=== PATIENT | female | born 1945 | race Caucasian/White ===

== ENCOUNTER 2019-11-08 13:14 | Inpatient (IN) | payer MEDICARE, OTHER ==
[~2019-11-08] VITALS: Ht 149.9 cm; Wt 83.6 kg
[2019-11-08 13:42] VITALS: BP 115/67
[2019-11-08 15:00] VITALS: BP 113/66
[2019-11-08 15:07] LABS: HEMATOCRIT 27.9 % (36.0-47.0); HEMOGLOBIN 9.6 g/dL (12.0-15.5); RED BLOOD COUNT 2.93 x10^6/uL (3.50-5.40); WHITE BLOOD COUNT 8.5 x10^3/uL (4.0-11.0)
[2019-11-08 15:18] LABS: PROTHROMBIN TIME PATIENT 21.8 SEC (11.7-14.0)
[2019-11-08 15:24] LABS: ALBUMIN 1.7 g/dL (3.4-5.0); ALBUMIN/GLOBULIN RATIO 0.5 (1.0-1.7); CALCIUM 7.7 mg/dL (8.5-10.1); CREATININE 1.2 mg/dL (0.6-1.0); GFR 44.2; TOTAL BILIRUBIN 1.7 mg/dL (0.2-1.0); TOTAL PROTEIN 5.2 g/dL (6.4-8.2)
[2019-11-08 15:26] LABS: POTASSIUM 2.7 mmol/L (3.5-5.1)
[2019-11-08] MEDS ORDERED: POTASSIUM CHLORIDE 20 MEQ TABLET.ER. PO ONE ×3 (16:00→23:45)
[2019-11-08] MEDS ORDERED: C.DIFF MED SCREEN BY RX. MC ONE (17:00)
[2019-11-08 19:00] VITALS: BP 115/75
[2019-11-08] MEDS ORDERED: SPIR50TA PO (20:21)
[2019-11-08] MEDS ORDERED: DIPH25TA24 PO (20:21)
[2019-11-08] MEDS ORDERED: METO25TA4 PO (20:21)
[2019-11-08] MEDS ORDERED: LACT20SO PO (20:21)
[2019-11-08] MEDS ORDERED: MULT-114 PO (20:21)
[2019-11-08] MEDS ORDERED: FURO40TA4 PO (20:21)
[2019-11-08] MEDS ORDERED: LEVO125T5 PO (20:21)
[2019-11-08] MEDS ORDERED: PANT40TA77 PO (20:21)
[2019-11-08] MEDS ORDERED: SUCR1ORA5 PO (20:21)
[2019-11-08] MEDS ORDERED: FERR325T14 PO (20:21)
[2019-11-08] MEDS ORDERED: MV-M1TAB7 PO (20:21)
[2019-11-08] MEDS ORDERED: RIFA550T4 PO (20:21)
[2019-11-08] MEDS ORDERED: OXYC5CAP PO (20:21)
[2019-11-08] MEDS ORDERED: DEXTROSE 50% 25 GM / 50ML DISP.SYRIN. IV PRN (20:30)
[2019-11-08] MEDS ORDERED: NON FORMULARY ITEM (Mv-Mn/Iron/Fa/Herbal Cmplx#190 (Vitamin D3 Complete Caplet) 1 EACH) PO PRN (20:30)
[2019-11-08] MEDS ORDERED: oxyCODONE IR 5 MG TABLET PO PRN (20:45)
[2019-11-08 23:00] VITALS: BP 110/69
[2019-11-08] MEDS: SPIRONOLACTONE 25 MG TABLET PO SCH (23:18)
[2019-11-08] MEDS: diphenhydrAMINE HCL 25 MG CAPSULE PO PRN (23:18)
[2019-11-08] MEDS: SUCRALFATE 1 GM/10 ML ORAL.SUSP. PO SCH (23:18)
[2019-11-08] MEDS: LACTULOSE 20 GM/30 ML SOLUTION. PO SCH (23:27)
[2019-11-08] MEDS: METOPROLOL TART IMMED RELEASE 25 MG TABLET. PO SCH (23:28)
[2019-11-08] MEDS: rifAXIMin 550 MG TABLET PO SCH (23:28)
[2019-11-09] VITALS (14 sets, daily range): BP systolic 98–124; BP diastolic 48–81
[2019-11-09] MEDS: LEVOTHYROXINE 125 MCG TABLET PO SCH (06:00)
[2019-11-09 07:10] LABS: BASO # 0.1 x10^3/uL (0.0-0.2); BASO % 1 % (0-3); EOS # 0.3 x10^3/uL (0.0-0.7); EOS % 4 % (0-3); HEMATOCRIT 26.7 % (36.0-47.0); LYMPH # 2.1 x10^3/uL (1.0-4.8); LYMPH % 25 % (24-48); MEAN CORPUSCULAR HEMOGLOBIN 32 pg (25-35); MEAN CORPUSCULAR HGB CONC 34 g/dL (31-37); MEAN CORPUSCULAR VOLUME 96 fL (79-100); MONO # 1.5 x10^3/uL (0.0-1.1); MONO % 18 % (0-9); NEUT # 4.3 x10^3/uL (1.8-7.7); NEUT % 52 % (31-73); PLATELET COUNT 117 x10^3/uL (140-400); RED BLOOD COUNT 2.79 x10^6/uL (3.50-5.40); WHITE BLOOD COUNT 8.4 x10^3/uL (4.0-11.0)
[2019-11-09 07:13] LABS: CALCIUM 7.4 mg/dL (8.5-10.1); CREATININE 1.2 mg/dL (0.6-1.0); GFR 44.2; POTASSIUM 3.7 mmol/L (3.5-5.1)
[2019-11-09] MEDS: PANTOPRAZOLE 40 MG TABLET.DR. PO SCH ×2 (07:30→15:29)
[2019-11-09] MEDS: INSULIN LISPRO 300 UNITS/3 ML VIAL. SQ SCH ×3 (08:00→16:54)
[2019-11-09] MEDS: MULTIVITAMIN with MINERAL TABLET. PO SCH (08:02)
[2019-11-09] MEDS: rifAXIMin 550 MG TABLET PO SCH ×2 (08:02→22:01)
[2019-11-09] MEDS: LACTULOSE 20 GM/30 ML SOLUTION. PO SCH ×2 (08:02→22:01)
[2019-11-09] MEDS: SPIRONOLACTONE 25 MG TABLET PO SCH ×2 (08:02→21:00)
[2019-11-09] MEDS: SUCRALFATE 1 GM/10 ML ORAL.SUSP. PO SCH ×4 (08:02→22:01)
[2019-11-09] MEDS: FERROUS SULFATE 325 MG TABLET. PO SCH (08:02)
[2019-11-09] MEDS: METOPROLOL TART IMMED RELEASE 25 MG TABLET. PO SCH ×2 (08:55→21:00)
--- NOTE | 2019-11-09 09:58 | NUR ---
SW following. Discussed with RN, pt is from [facility]. Pt requires a COVID test to return. NPO, procedure today. SW will continue to follow.
[2019-11-09 10:44] LABS: % BANDS 4 % (0-9); % BASOS 1 % (0-3); % EOS 1 % (0-5); % LYMPHS 20 % (24-48); % MONOS 3 % (0-10); % SEGS 71 % (35-66)
[2019-11-09 10:49] LABS: PLT ESTIMATE DECREASED (ADEQUATE)
[2019-11-09 10:50] LABS: ANISOCYTOSIS SLIGHT
--- NOTE | 2019-11-09 11:33 | HP ---
ADMIT DATE: 11/09/2019 1HISTORY OF PRESENT ILLNESS: The patient is a 74-year-old female patient, a resident at [facility], who was admitted there for rehabilitation after admission to [facility]. She has had 2 episodes of GI bleed and was found to have anastomotic ulcer at the gastrojejunostomy and she underwent gastric bypass surgery for morbid obesity. She was also found to have advanced liver cirrhosis and when I saw her recently she had markedly swelling of both lower extremities for which we have arranged for her to have venous Doppler ultrasound, which basically showed that she has deep vein thrombosis of her left lower extremity and given that she has bled twice, I spoke with Dr. Maguire regarding placement of an IVC filter and he kindly accepted the patient for placement of the IVC filter as she is high risk for bleeding and cannot be put on anticoagulation. The patient herself denied any shortness of breath, cough, phlegm or hemoptysis. PAST MEDICAL HISTORY: Significant for hyperlipidemia, hypertension, hypothyroidism, visual impairment, morbid obesity. She also has hypothyroidism, gastroesophageal reflux disease. She also had chronic constipation, sciatica, GI bleed from anastomotic ulcer, weight loss, alcoholic liver cirrhosis, claustrophobia, anxiety and depression. PAST SURGICAL HISTORY: Significant for tonsillectomy, adenoidectomy, appendectomy, gastric bypass surgery, carpal tunnel release, total abdominal hysterectomy, bilateral salpingo-oophorectomy, left elbow surgery, esophagogastroduodenoscopy. FAMILY HISTORY: Positive for hypertension, type 2 diabetes. SOCIAL HISTORY: She is currently residing at [facility]. She normally lives at home. Her daughter and granddaughter lives with her son, her son lives in [place]. She does not smoke, but drinks alcohol, mostly wine. ALLERGIES: SHE IS ALLERGIC TO AMPICILLIN, ASPIRIN, DOXYCYCLINE, ERYTHROMYCIN, VANCOMYCIN, AND SULFA DRUGS. MEDICATIONS: She is currently on following medications: She is on diphenhydramine 25 mg every 12 hours as needed, rifaximin 550 mg twice a day, ferrous sulfate 325 mg once a day, metoprolol tartrate 12.5 mg twice a day, spironolactone 50 mg twice a day, oxycodone 5 mg every 4 hours, lactulose 20 g p.o. b.i.d., furosemide 40 mg twice a day, sucralfate 1 g 4 times a day. She is on Protonix 40 mg twice a day, levothyroxine sodium 125 mcg once a day, multivitamin with mineral 1 tablet once a day, multivitamin, vitamin D complete 1 tablet once a day. REVIEW OF SYSTEMS: As per history of present illness. PHYSICAL EXAMINATION: GENERAL: On arrival to the hospital, she looked well and was clearly in no apparent respiratory distress. She is pale, no jaundice, cyanosis or thyromegaly. No jugular venous distention. No limb edema. VITAL SIGNS: Her heart rate was 85, blood pressure 115/75, temperature was 99, respiratory rate was 16, and oxygen saturation was 99% on room air. HEAD, EYES, EARS, NOSE AND THROAT: Normocephalic, atraumatic. NECK: Supple. HEART: Showed normal first and second heart sounds. No gallop, rub or murmur. CHEST: Clear to auscultation. No crepitation or rhonchi. ABDOMEN: Distended, soft, nontender. No guarding or rigidity. No organomegaly. All hernial orifice intact. Bowel sounds normal. NEUROLOGIC: She was awake, alert, responding appropriately. All cranial nerves intact. EXTREMITIES: She moves extremities without difficulty, she ambulates with a walker. She has no evidence of flapping tremor. LABORATORY DATA: Her lab work showed her white cell count to be 8500, hemoglobin was 9.6, hematocrit 27.9, MCV 95, and platelet count of 129,000. Her prothrombin time was 21.8, INR 1.9, aPTT was 50. Her chemistry showed a serum sodium 138, potassium 3.7, chloride 101, bicarbonate 27, anion gap of 10, BUN 8, creatinine was 1.2, estimated GFR was 44 mL per minute. Her glucose 124, calcium was 7.7. Total bilirubin 1.7. AST, ALT, alkaline phosphatase were normal. Serum ammonia was 27. Total protein was 5.2, albumin was 1.7. ASSESSMENT AND PLAN: In summary, this is a 74-year-old female patient who has left lower extremity deep vein thrombosis who also has anastomotic ulcers from which she bled twice. She has also advanced liver disease and therefore a decision was made to admit her for placement of IVC filter. We have consulted Dr. Sellers. We will keep her n.p.o. from midnight tonight and follow her labs closely. RON PIERCE MD DR: FRANCHESCA/ketty JOB#: [id number] / [id number]
[2019-11-09] MEDS ORDERED: IOHEXOL 240 MG/ML 50ML VIAL. ONE (13:28)
[2019-11-09] MEDS ORDERED: LIDOCAINE WITH 8.4% SOD BICARB 3 ML DISP.SYRIN. ONE (13:28)
[2019-11-09] MEDS ORDERED: fentaNYL PF VIAL 100 MCG/2 ML VIAL ONE (14:17)
[2019-11-09] MEDS ORDERED: MIDAZOLAM HCL/PF 2 MG/2 ML VIAL. ONE (14:17)
[2019-11-09] MEDS ORDERED: fentaNYL PF VIAL 100 MCG/2 ML VIAL IV ONE (14:30)
[2019-11-09] MEDS ORDERED: LIDOCAINE WITH 8.4% SOD BICARB 3 ML DISP.SYRIN. IJ ONE (14:30)
[2019-11-09] MEDS ORDERED: MIDAZOLAM HCL/PF 2 MG/2 ML VIAL. IV ONE (14:30)
[2019-11-09] MEDS ORDERED: IOHEXOL 240 MG/ML 50ML VIAL. IJ ONE (14:30)
[2019-11-09] MEDS ORDERED: CONTRAST GIVEN. MC PRN (14:45)
--- NOTE | 2019-11-09 15:03 | NUR ---
Patient to IR for IVC filter placement. Placed through right IJ, no sedation. Patient tolerated well with no complications, vitals stable. Report called to ZEHRA Baeza on .
[2019-11-10] MEDS: PANTOPRAZOLE 40 MG TABLET.DR. PO SCH (05:52)
[2019-11-10] MEDS: LEVOTHYROXINE 125 MCG TABLET PO SCH (05:52)
[2019-11-10 07:00] VITALS: BP 94/59
[2019-11-10] MEDS: INSULIN LISPRO 300 UNITS/3 ML VIAL. SQ SCH ×3 (08:00→17:00)
[2019-11-10] MEDS: METOPROLOL TART IMMED RELEASE 25 MG TABLET. PO SCH ×2 (08:09→20:38)
[2019-11-10] MEDS: SPIRONOLACTONE 25 MG TABLET PO SCH ×2 (08:09→20:38)
[2019-11-10] MEDS: rifAXIMin 550 MG TABLET PO SCH ×2 (08:14→20:38)
[2019-11-10] MEDS: LACTULOSE 20 GM/30 ML SOLUTION. PO SCH ×2 (08:15→20:37)
[2019-11-10] MEDS: FERROUS SULFATE 325 MG TABLET. PO SCH (08:15)
[2019-11-10] MEDS: diphenhydrAMINE HCL 25 MG CAPSULE PO PRN ×2 (08:15→21:52)
[2019-11-10] MEDS: MULTIVITAMIN with MINERAL TABLET. PO SCH (08:15)
[2019-11-10] MEDS: SUCRALFATE 1 GM/10 ML ORAL.SUSP. PO SCH ×4 (10:00→20:37)
[2019-11-10 11:00] VITALS: BP 117/70
--- NOTE | 2019-11-10 13:45 | NUR ---
Pharmacy Medication Review S: Consulted for medication review re: C.diff Risk Assessment score of 4 O: TOMMY AUSTIN is a 74 year old with: Previous C.diff infection: No Previous hospitalization: Within 60 days Recent antibiotics: Within 60 days Use of gastric acid suppressor: No Transfer from ID/LTAC: Yes Current antibiotic regimen: Current acid suppression regimen: A: Patient has been identified as having risk factors for C.diff infection as noted above. P: Antibiotic Regimen recommendation made: No Probiotic ordered: Yes PPI changed to [id number]: Yes Souleymane Lewis [facility], 11/10/19 [id number]
[2019-11-10 15:00] VITALS: BP_SYST 112; BP_SYST 134; BP_DIAS 63; BP_DIAS 72
--- NOTE | 2019-11-10 15:35 | RAD ---
11/10/2019 1:29 PM Procedures: 1. Inferior venacavogram 2. Placement of an IVC filter Clinical Indication: DVT with contraindication to anticoagulation. The procedure was explained in its entirety to the patient or the patients designated account representative by a member of the treatment team, including a discussion of the risks, benefits and commonly accepted alternatives to the procedure, as well as the expected consequences of no therapy whatsoever. Discussion of the risks included, but was not limited to, those that are most frequent and those that are rare but possibly severe or life-threatening, as well as the possibility of unforeseen complications. All elements of maximal sterile barrier technique including the use of a cap, mask, sterile gown, sterile gloves, large sterile sheet, appropriate hand hygiene, and 2% chlorhexidine for cutaneous antisepsis (or acceptable alternative antiseptic per current guidelines) were followed for this procedure. Ultrasound guided access: Ultrasound evaluation showed a patent right internal jugular vein . The right neck was prepped and draped using maximal sterile technique and one percent Xylocaine was used for local anesthesia. Under ultrasound guidance, a singlewall puncture was made into the right internal jugular vein followed by placement of a filter delivery sheath into the IVC. An ultrasound image of the right neck was saved and sent to PACS. Sonography was performed demonstrating renal inflow, no thrombus or other focal abnormality was seen. The [employer] permanent IVC filter was deployed in the infrarenal IVC. Filter is in acceptable position. Position was confirmed with sonography. The sheath was removed and manual pressure was held. The procedures performed under local anesthesia. Fluoroscopy time: 1 minutes Dose area product: 49 talbot centimeters squared Impression: Placement of a permanent IVC filter
--- NOTE | 2019-11-10 15:37 | DS ---
DATE OF DISCHARGE: 11/10/2019 HOSPITAL COURSE: The patient is a 74-year-old female patient, a resident at [facility], who was seen there and we did order venous Doppler ultrasound which showed that she has deep vein thrombosis in her left lower extremity. She has had 2 episodes of bleeding from anastomotic ulcer. She had a Anna-en-Y gastric bypass and therefore, a decision was made to transfer her to [facility] and in consultation with Dr. Maguire she was a candidate for IVC filter that was placed successfully yesterday. PHYSICAL EXAMINATION: GENERAL: When I saw her today, she was resting slightly propped up in bed, in no apparent respiratory distress. Awake, alert, responding appropriately. All cranial nerves intact. She moves extremities without difficulty. VITAL SIGNS: Her heart rate was 75, blood pressure was 117/70, temperature 98.3, respiratory rate was 16, and oxygen saturation was 99% on room air. The rest of her clinical exam is stable and a grossly normal. Her intake and output are incompletely recorded. LABORATORY DATA: As of yesterday showed a white cell count of 8400, hemoglobin 9, hematocrit 27, MCV 96, and platelet count of 117,000. Her serum sodium was 136, potassium 3.7, chloride 104, bicarbonate 28, anion gap of 7, BUN 8, creatinine 1.2, estimated GFR was 44 mL per minute. Her glucose 117, calcium was 7.4. Her prothrombin time was 21.8, INR 1.9, aPTT 50. Her C. diff toxins were negative. DISCHARGE MEDICATIONS: She was discharged to [facility] to continue on diphenhydramine 25 mg every 12 hours, ferrous sulfate 325 mg once a day, furosemide 40 mg twice a day, lactulose 20 grams that is 50 mL twice a day, levothyroxine sodium 125 mcg once a day, metoprolol tartrate 12.5 mg once a day, multivitamin with mineral 1 tablet once a day. She also has oxycodone 5 mg every 4 hours, Protonix 40 mg twice a day, rifaximin 550 mg twice a day, spironolactone 50 mg twice a day and sucralfate 1 gram 4 times a day. FINAL DISCHARGE DIAGNOSES: 1. Left lower extremity deep venous thrombosis, status post inferior vena cava filter placement successfully. 2. Other medical problems, recurrent GI bleed from anastomotic ulcer. 3. Hyperlipidemia. 4. Hypertension. 5. Hypothyroidism. 6. Morbid obesity. 7. Gastroesophageal reflux disease. RON PIERCE MD DR: FRANCHESCA/ketty JOB#: [id number] / [id number]
--- NOTE | 2019-11-10 16:31 | NUR ---
SW following. Discussed with RN, pt at first not sure she wanted to return to [facility]. Discussed further with pt and pt's daughter - in the end agreeable to returning to [facility] for SNU. STEPHANIE faxed updates, pt can discharge pending result of COVID-19 test. RN and Dr[address] Schwartz notified. [facility] can take pt back Wednesday or Wednesday.
[2019-11-10 19:35] VITALS: BP 116/76
[2019-11-10] MEDS: FAMOTIDINE 20 MG TABLET. PO SCH (20:37)
[2019-11-10] MEDS: LACTOBACILLUS RHAMNOSUS GG 1 CAPSULE. PO SCH (20:37)
[2019-11-10 23:19] VITALS: BP 122/60
[2019-11-11 03:34] VITALS: BP 99/62
[2019-11-11] MEDS: LEVOTHYROXINE 125 MCG TABLET PO SCH (06:18)
[2019-11-11 07:00] VITALS: BP 102/60
[2019-11-11] MEDS: INSULIN LISPRO 300 UNITS/3 ML VIAL. SQ SCH ×3 (07:26→17:00)
[2019-11-11] MEDS: FERROUS SULFATE 325 MG TABLET. PO SCH (09:08)
[2019-11-11] MEDS: FAMOTIDINE 20 MG TABLET. PO SCH ×2 (09:08→21:09)
[2019-11-11] MEDS: MULTIVITAMIN with MINERAL TABLET. PO SCH (09:08)
[2019-11-11] MEDS: rifAXIMin 550 MG TABLET PO SCH ×2 (09:08→21:09)
[2019-11-11] MEDS: LACTOBACILLUS RHAMNOSUS GG 1 CAPSULE. PO SCH ×2 (09:08→21:09)
[2019-11-11] MEDS: METOPROLOL TART IMMED RELEASE 25 MG TABLET. PO SCH ×2 (09:09→21:11)
[2019-11-11] MEDS: SPIRONOLACTONE 25 MG TABLET PO SCH ×2 (09:10→21:12)
[2019-11-11] MEDS: SUCRALFATE 1 GM/10 ML ORAL.SUSP. PO SCH ×4 (09:12→21:09)
[2019-11-11] MEDS: LACTULOSE 20 GM/30 ML SOLUTION. PO SCH ×2 (09:14→21:09)
[2019-11-11 11:10] VITALS: BP 140/87
--- NOTE | 2019-11-11 13:05 | PN ---
DATE: 11/11/2019 SUBJECTIVE: The patient is sitting comfortably in her chair, in no apparent distress, awake, alert. On questioning her, she denied any complaints. Nursing staff did not voice any concern. She was supposed to be discharged yesterday to [facility]. Unfortunately, her COVID test is still pending at the time of this dictation. PHYSICAL EXAMINATION: GENERAL: When I examined her this afternoon, she looked well, slightly pale, but no jaundice, cyanosis or thyromegaly. No jugular venous distention. No limb edema. VITAL SIGNS: Her heart rate was 73, blood pressure was 140/87, temperature 98.7, respiratory rate 20, and oxygen saturation was 100%. HEAD, EYES, EARS, NOSE AND THROAT: Showed normocephalic and atraumatic. NECK: Supple. HEART: Showed normal first and second heart sounds. No gallop or murmur. CHEST: Clear to auscultation. No crepitation or rhonchi. ABDOMEN: Distended, soft, nontender. NEUROLOGIC: She is awake, alert, responding appropriately. All cranial nerves are intact. She moves extremities without difficulty. LABORATORY DATA: Her most recent lab work showed a white cell count of 8400, hemoglobin 9, hematocrit 26, MCV 96, and platelet count 117,000. Her blood sugar is well controlled. Her chemistry showed a BUN of 8, creatinine 1.2. Ammonia was only 27. Her C. diff toxins were negative. Unfortunately, we are still waiting for the COVID test and if it came back negative today, she can be discharged to [facility]. RON PIERCE MD DR: FRANCHESCA/ketty JOB#: [id number] / [id number]
[2019-11-11 14:55] VITALS: BP 124/81
[2019-11-11 19:00] VITALS: BP 121/86
[2019-11-11] MEDS: diphenhydrAMINE HCL 25 MG CAPSULE PO PRN (21:09)
[2019-11-11 23:00] VITALS: BP 104/53
[2019-11-12 03:00] VITALS: BP 136/75
[2019-11-12] MEDS: LEVOTHYROXINE 125 MCG TABLET PO SCH (06:34)
[2019-11-12 07:00] VITALS: BP 119/69
[2019-11-12] MEDS: INSULIN LISPRO 300 UNITS/3 ML VIAL. SQ SCH ×3 (08:00→17:00)
[2019-11-12] MEDS: SUCRALFATE 1 GM/10 ML ORAL.SUSP. PO SCH ×4 (09:09→22:00)
[2019-11-12] MEDS: FAMOTIDINE 20 MG TABLET. PO SCH ×2 (09:10→21:29)
[2019-11-12] MEDS: LACTULOSE 20 GM/30 ML SOLUTION. PO SCH ×2 (09:10→21:00)
[2019-11-12] MEDS: rifAXIMin 550 MG TABLET PO SCH ×2 (09:10→21:28)
[2019-11-12] MEDS: LACTOBACILLUS RHAMNOSUS GG 1 CAPSULE. PO SCH ×2 (09:10→21:29)
[2019-11-12] MEDS: METOPROLOL TART IMMED RELEASE 25 MG TABLET. PO SCH ×2 (09:11→21:30)
[2019-11-12] MEDS: SPIRONOLACTONE 25 MG TABLET PO SCH ×2 (09:11→21:29)
[2019-11-12] MEDS: MULTIVITAMIN with MINERAL TABLET. PO SCH (09:11)
[2019-11-12] MEDS: FERROUS SULFATE 325 MG TABLET. PO SCH (09:11)
[2019-11-12] MEDS: diphenhydrAMINE HCL 25 MG CAPSULE PO PRN ×2 (10:40→21:28)
[2019-11-12] MEDS: CETIRIZINE HCL 10 MG TABLET. PO SCH (10:40)
[2019-11-12] MEDS ORDERED: BENZOCAINE 10% ORAL GEL 7GM TUBE. TP PRN (10:45)
[2019-11-12 11:00] VITALS: BP 118/58
--- NOTE | 2019-11-12 11:48 | NUR ---
RN called lab to inquire RE delay of covid results. RN was informed that swab was never received by lab from order on 11/09/19. pt was swabbed 11/11 bu this RN stat but lab will still only be able to send to [facility] as pt is not surgical or OB.
--- NOTE | 2019-11-12 11:57 | PN ---
DATE: 11/12/2019 SUBJECTIVE: The patient is resting, slightly propped up in bed, awake, alert, complaining of generalized itching. Denied any other complaint. Apparently, her COVID test was not done, although it was ordered on the and therefore we will order it stat to be sent to [facility]. PHYSICAL EXAMINATION: GENERAL: When I examined her this morning, she looked pale, no jaundice, cyanosis or thyromegaly. No jugular venous distention. No limb edema. VITAL SIGNS: Her heart rate was 68, blood pressure was 119/69, temperature was 97.9, respiratory rate was 18, and oxygen saturation was 99%. HEAD, EYES, EARS, NOSE, AND THROAT: Normocephalic, atraumatic. NECK: Supple. HEART: Showed normal first and second sounds. No gallop, rub or murmur. CHEST: Clear to auscultation. No crepitation or rhonchi. ABDOMEN: Distended, soft, nontender. No guarding or rigidity. No organomegaly. All hernial orifices intact. Bowel sounds normal. NEUROLOGIC: She is awake, alert, responding appropriately. All cranial nerves intact. She moves extremities without difficulty. She ambulates with a walker. Her intake over the last 24 hours was incompletely recorded. LABORATORY DATA: Showed her blood sugar seems to be reasonably controlled. Her most recent BUN was 8 and creatinine 1.2. ASSESSMENT: 1. Left lower extremity deep vein thrombosis, status post inferior vena cava filter placement. 2. Recurrent GI bleed from an anastomotic ulcer. 3. Chronic alcoholic liver cirrhosis, hyperlipidemia, hypertension, hypothyroidism, morbid obesity and obstructive sleep apnea. PLAN: To send COVID test stat so that will be available tomorrow morning, we can discharge her back to [facility]. I will repeat her labs tomorrow morning and hopefully discharge her back to [facility]. For her pruritus, I will start her on Zyrtec as well as Questran. RON PIERCE MD DR: FRANCHESCA/ketty JOB#: [id number] / [id number]
[2019-11-12] MEDS: CHOLESTYRAMINE/ASPARTAME 4 GM PACKET PO SCH ×2 (11:58→22:00)
--- NOTE | 2019-11-12 14:02 | NUR ---
pt refused sucrafate d/t sore in mouth
[2019-11-12 15:00] VITALS: BP 112/77
[2019-11-12 19:00] VITALS: BP 116/39
[2019-11-12 23:00] VITALS: BP 100/66
[2019-11-13 03:00] VITALS: BP 112/70
[2019-11-13 05:22] LABS: HEMATOCRIT 27.9 % (36.0-47.0); HEMOGLOBIN 9.5 g/dL (12.0-15.5); RED BLOOD COUNT 2.94 x10^6/uL (3.50-5.40); RED CELL DISTRIBUTION WIDTH 17.5 % (11.5-14.5); WHITE BLOOD COUNT 8.9 x10^3/uL (4.0-11.0)
[2019-11-13 05:50] LABS: ALBUMIN 1.5 g/dL (3.4-5.0); ALBUMIN/GLOBULIN RATIO 0.5 (1.0-1.7); CALCIUM 7.1 mg/dL (8.5-10.1); CREATININE 0.9 mg/dL (0.6-1.0); GFR 61.5; POTASSIUM 3.7 mmol/L (3.5-5.1); TOTAL PROTEIN 4.8 g/dL (6.4-8.2)
[2019-11-13] MEDS: LEVOTHYROXINE 125 MCG TABLET PO SCH (06:10)
[2019-11-13 07:53] VITALS: BP 120/65
[2019-11-13] MEDS: INSULIN LISPRO 300 UNITS/3 ML VIAL. SQ SCH ×2 (08:00→12:00)
[2019-11-13] MEDS: FAMOTIDINE 20 MG TABLET. PO SCH (08:30)
[2019-11-13] MEDS: CETIRIZINE HCL 10 MG TABLET. PO SCH (08:30)
[2019-11-13] MEDS: FERROUS SULFATE 325 MG TABLET. PO SCH (08:30)
[2019-11-13] MEDS: MULTIVITAMIN with MINERAL TABLET. PO SCH (08:30)
[2019-11-13] MEDS: METOPROLOL TART IMMED RELEASE 25 MG TABLET. PO SCH (08:30)
[2019-11-13] MEDS: LACTOBACILLUS RHAMNOSUS GG 1 CAPSULE. PO SCH (08:30)
[2019-11-13] MEDS: SUCRALFATE 1 GM/10 ML ORAL.SUSP. PO SCH ×2 (08:31→13:14)
[2019-11-13] MEDS: SPIRONOLACTONE 25 MG TABLET PO SCH (08:31)
[2019-11-13] MEDS: rifAXIMin 550 MG TABLET PO SCH (08:31)
[2019-11-13] MEDS: CHOLESTYRAMINE/ASPARTAME 4 GM PACKET PO SCH (08:32)
[2019-11-13] MEDS: LACTULOSE 20 GM/30 ML SOLUTION. PO SCH (08:32)
--- NOTE | 2019-11-13 08:47 | NUR ---
STEPHANIE following. Discussed with RN, COVID-19 test result did not come back over the weekend, pt was reswabbed due to error. COVID-19 negative result this morning. STEPHANIE attempting to contact [facility] to determine discharge time. STEPHANIE will continue to follow. Addendum: 11/13/19 at 1243 by MARTA BROWN Pt is COVID-19 negative. Faxed discharge orders to [facility]. Transportation arranged by [facility] for between [phone]. ZEHRA notified. Addendum: 11/13/19 at 1417 by MARTA BROWN Transportation time changed to [phone]. RN and pt's daughter, Mai notified.
[2019-11-13 11:08] VITALS: BP 122/71
--- NOTE | 2019-11-13 11:17 | SNU/HH DC ---
DISCHARGE ORDERS DISCHARGE INFORMATION: DISCHARGE DATE: Nov 13, 2019 FINAL DIAGNOSIS LLE DVT BLEEDING from anastomotic ulcer s/p I V C FILTER PLACEMENT ALCOHOLIC LIVER CIRRHOSIS CONDITION ON DISCHARGE: Stable CODE STATUS: Code Status: Full FCI: SNF STAY <30 DAYS: Yes POST DISCHARGE ORDERS: ACTIVITY ORDERS: Activity as tolerated DIET AFTER DISCHARGE: Regular TREATMENT/EQUIPMENT ORDERS: Physical Therapy For: Evalulation/Treatment Occupational Therapy For: Evaluation/Treatment DISCHARGE MEDICATIONS: Home Meds Reported Medications Mv-Mn/Iron/Fa/Herbal Cmplx#190 (VITAMIN D3 COMPLETE CAPLET) 1 Each Tablet, 1 EACH PO DAILY PRN for supplements, TAB 11/08/19 Sucralfate (CARAFATE) 1 Gm/10 Ml Oral.susp, 10 ML PO QID for gerd for 30 Days, L 0 Refills before food 11/08/19 Pantoprazole Sodium (PROTONIX ) 40 Mg Tablet.dr, 40 MG PO BIDAC for GERD, TAB 11/08/19 Oxycodone Hcl (OXYCODONE HCL) 5 Mg Capsule, 5 MG PO PRN Q4HRS PRN for PAIN, TAB 0 Refills 11/08/19 Multivitamin With Minerals (MULTIVITAMINS WITH MINERALS) 1 Each Tablet, 1 TAB PO DAILY for supplements for 30 Days, #30 TAB 0 Refills 11/08/19 Metoprolol Tartrate (METOPROLOL TARTRATE) 25 Mg Tablet, 12.5 MG PO BID for FOR HYPERTENSION, #60 TAB 0 Refills 11/08/19 Levothyroxine Sodium (LEVOTHYROXINE SODIUM) 125 Mcg Tablet, 1 TAB PO DAILY for hypothyroidism, #30 TAB 5 Refills 11/08/19 Furosemide (FUROSEMIDE) 40 Mg Tablet, 1 TAB PO BID for localized edema, #30 TAB 5 Refills 11/08/19 Lactulose (LACTULOSE) 20 Gm/30 Ml Solution, 20 GM PO BID for elevated ammonia levels , MISC 11/08/19 Ferrous Sulfate (FERROUS SULFATE) 325 Mg Tablet, 1 TAB PO DAILY for anemia, #30 TAB 3 Refills 11/08/19 Diphenhydramine Hcl (DIPHENHYDRAMINE HCL) 25 Mg Tablet, 1 TAB PO PRN Q12HR PRN for ALLERGIES for 30 Days, TAB 0 Refills 11/08/19 Spironolactone (ALDACTONE) 50 Mg Tablet, 1 TAB PO BID for ascites, #30 TAB 3 Refills 11/08/19 Rifaximin (XIFAXAN) 550 Mg Tablet, 1 TAB PO BID for encephalopathy for 10 Days, #20 TAB 0 Refills 11/08/19 RON PIERCE MD Nov 13, 2019 11:17
--- NOTE | 2019-11-13 11:43 | DS ---
DATE OF DISCHARGE: HOSPITAL COURSE: The patient is a 74-year-old female patient who basically developed left lower extremity DVT and as she has bled from anastomotic ulcer twice, a decision was made to admit her to [facility] and she underwent placement of IVC filter successfully. Unfortunately, her COVID test took a while before it came and was negative and a decision was made to discharge her back to [facility] to continue the process of rehabilitation. PHYSICAL EXAMINATION: GENERAL: When I saw her today, she looked well and was clearly in no apparent respiratory distress, pale, but no jaundice, cyanosis or thyromegaly. No jugular venous distention. No limb edema. VITAL SIGNS: Her heart rate was 61, blood pressure was 120/65, temperature 97.9, respiratory rate was 18 and oxygen saturation was 99%. HEAD, EYES, EARS, NOSE AND THROAT: Showed normocephalic, atraumatic. NECK: Supple. HEART: Showed normal first and second heart sounds with no gallop, rub or murmur. CHEST: Clear to auscultation. No crepitation or rhonchi. ABDOMEN: Distended, soft, nontender. No guarding or rigidity. No organomegaly. All hernial orifices intact. Bowel sounds normal. NEUROLOGIC: She is awake, alert, responding appropriately. All cranial nerves intact. She moves extremities without difficulty. She ambulates with a walker with standby assist. LABORATORY DATA: This morning showed a white cell count of 8900, hemoglobin 9.5, hematocrit 28, MCV 95, and platelet count of 103,000. Serum sodium was 138, potassium 3.7, chloride 103, bicarbonate 28, anion gap of 7, BUN 8, creatinine 0.9, estimated GFR was 61 mL per minute. Her glucose was 96, calcium was 7.1, total bilirubin 2. AST slightly elevated, ALT and alkaline phosphatase normal. Total protein was 4.8, albumin was 1.5. Her prothrombin time was 21.8, INR 1.9, AST was 50. DISCHARGE MEDICATIONS: She will be discharged to [facility] to continue on diphenhydramine 25 mg every 12 hours, ferrous sulfate 325 mg once a day, furosemide 40 mg twice a day, lactulose 30 mL twice a day, levothyroxine 125 mcg once a day, metoprolol tartrate 12.5 mg twice a day, multivitamin 1 tablet once a day, oxycodone 5 mg every 4 hours, Protonix 40 mg twice a day, rifaximin 550 mg twice a day, spironolactone 50 mg twice a day and sucralfate 1 gram 4 times a day. FINAL DISCHARGE DIAGNOSES: 1. Left lower extremity deep venous thrombosis, status post inferior vena cava filter, recurrent gastrointestinal bleed from anastomotic ulcer. 2. Chronic alcoholic liver disease. 3. Hyperlipidemia. 4. Hypertension. 5. Hypothyroidism. 6. Morbid obesity, obstructive sleep apnea. RON PIERCE MD DR: FRANCHESCA/ketty JOB#: [id number] / [id number]
--- NOTE | 2019-11-13 14:16 | NUR ---
Called and gave report to Zoila @ [facility].
[2019-11-13 15:07] VITALS: BP 127/70
--- NOTE | 2019-11-13 15:46 | NUR ---
Pt discharged to [facility]. Discharge instructions discussed with [facility]. IV removed. Call light within reach. Assisted pt to wheelchair and she was taken by transportation.
== END 2019-11-13 15:49 | DRG 252 ==
LOC: 4 NORTH 13:14
PROVIDERS: ADMIT Internal Medicine; ATTEND Internal Medicine
PROC: 06H03DZ Insertion of Intraluminal Device into Inferior Vena Cava, Percutaneous Approach (ICD-10-PCS; principal; 2019-11-10)
PROC: B51D1ZZ Fluoroscopy of Bilateral Lower Extremity Veins using Low Osmolar Contrast (ICD-10-PCS; 2019-11-10)
DX: I82.402 Acute embolism and thrombosis of unspecified deep veins of left lower extremity (principal); E43 Unspecified severe protein-calorie malnutrition; K28.4 Chronic or unspecified gastrojejunal ulcer with hemorrhage; E03.9 Hypothyroidism, unspecified; E66.01 Morbid (severe) obesity due to excess calories; E78.5 Hyperlipidemia, unspecified; F40.240 Claustrophobia; G47.33 Obstructive sleep apnea (adult) (pediatric); H54.7 Unspecified visual loss; I10 Essential (primary) hypertension; K21.9 Gastro-esophageal reflux disease without esophagitis; K70.30 Alcoholic cirrhosis of liver without ascites; L29.9 Pruritus, unspecified; Z82.49 Family history of ischemic heart disease and other diseases of the circulatory system; Z83.3 Family history of diabetes mellitus; Z87.11 Personal history of peptic ulcer disease; Z90.710 Acquired absence of both cervix and uterus; Z95.828 Presence of other vascular implants and grafts; Z98.84 Bariatric surgery status; F32.9 Major depressive disorder, single episode, unspecified; F41.9 Anxiety disorder, unspecified; Z68.37 Body mass index [BMI] 37.0-37.9, adult; Z88.8 Allergy status to other drugs, medicaments and biological substances; Z79.899 Other long term (current) drug therapy; Z90.49 Acquired absence of other specified parts of digestive tract; Z90.722 Acquired absence of ovaries, bilateral; Z20.828 Contact with and (suspected) exposure to other viral communicable diseases
CPT/HCPCS: 36415; 37191; 76937; 80048; 80053; 82140; 82962; 85007; 85025; 85027; 85610; 85730; 87493; C1769; C1892; J1815; J3490; Q9966; 97110-GP; 97116-GP; 97530-GO; 97530-GP; 97535-GO; G0378; Q0163; U0003-CS